=== PATIENT | male | born 1980 | race Two or more races ===

== ENCOUNTER 2024-02-13 20:12 | Inpatient (IN) | payer SELFPAY ==
[~2024-02-13] VITALS: Ht 182.9 cm; Wt 97.7 kg
--- NOTE | 2024-02-13 20:23 | ED.PDOC ---
History of Present Illness HPI Comments 43 y/o M, with a Hx of former tobacco abuse, presents with c/o 10/10 right-sided chest pain, with radiation to his back, for 1x day, today. Patient endorses on unprovoked onset of constant pain that worsened within the past 1-2 hours prior to arrival to ED. He describes pain as if he is "being stabbed with a knife" that worsens with deep breathes and exhalation and improves with pressure applied to chest area. Patient endorses FMHx of NE (grandfather and father) and CVA (brother) in addition to recent car travel within the past 24-48 hours. He denies any recent injuries, strenuous activities, sick contact, spoiled food intake, inhaling any chemicals, or illicit substance use/exposure. Patient does not follow up with the primary care provider however he states he is in relatively good health, exercises regularly. He takes finasteride for hair growth and Tylenol as needed. Time Seen by MD: 20:22 Reviewed Notes: Nurses Notes, Medications, Allergies Allergies: Coded Allergies: NO KNOWN ALLERGIES (Unverified , 02/13/24) Information Source: Patient Mode of Arrival: Ambulatory Severity: Moderate Timing: Days Duration: Since onset Prehospital treatment: None Review of Systems: REVIEW OF SYSTEMS: No fever, no chills, or fatigue HEENT: No sore throat, no earache, no congestion, no neck pain. Cardiac: Positive chest pain. No palpitations. Lungs: No shortness of breath, no cough. GI: Positive nausea, positive eructation, no vomiting, no diarrhea, no constipation, no abdominal pain : No dysuria, frequency, or urgency. No hematuria. Musculoskeletal: No joint pain , no joint swelling, no extremity edema. Skin: No rash, no itching. Neuro: Positive headache, positive dizziness, no weakness Vital Signs Vital Signs Date Time Temp Pulse Resp B/P (MAP) Pulse Ox O2 Delivery O2 Flow Rate FiO2 02/14/24 03:55 90 20 140/92 02/14/24 01:41 95 Room Air* 0 21 02/14/24 01:41 98.2 98.2 Physical Exam General: Awake, alert and oriented. No acute distress. Skin: Skin in warm, dry and intact. Appropriate color for ethnicity. Nailbeds pink with no cyanosis. No rash over the chest or abdomen wall. HEENT: The head is normocephalic and atraumatic. Conjunctivae are clear without exudates or hemorrhage. Sclera is non-icteric. EOM are intact. No signs of nystagmus. Eyelids are normal in appearance without swelling or lesions. Oral mucosa is pink and moist Neck: The neck is supple with normal range of motion. No JVD. Cardiac: Heart rate and rhythm are normal. No murmurs, gallops, or rubs are auscultated. Respiratory: No signs of respiratory distress. Lung sounds are clear in all lobes bilaterally without rales, ronchi, or wheezes. Chest: No deformity, positive right chest wall tenderness to palpation. Abdominal: Abdomen is soft, non-tender without distention. Bowel sounds are present and normoactive in all four quadrants. Extremities: Upper and lower extremities are atraumatic in appearance without deformity or edema. Neurological: The patient is awake, alert and oriented to person, place, and time with normal speech. Speech is clear. There is no facial asymmetry. Psychiatric: Appropriate mood and affect. Good judgement and insight. No visual or auditory hallucinations. Past Medical History PAST MEDICAL HISTORY: Denies Surgical History: Denies all surgeries Family History Family History: No family hx of Cancer, No family hx of DM, No family hx of HTN, No family hx ofKidney erik, No family hx of Liver erik, No family hx of Lung erik, No family hx of Stroke, Family hx of heart erik (NE) Family History (Other): CVA Social History Smoker: Cigarettes Alcohol: Denies ETOH Use Drugs: Denies Drug Use Lives In: Home Was a procedure done? Was a procedure done?: No EKG EKG : Comments Sinus rhythm at a rate of 99, no STEMI. QRS axis, QTC within normal limits. EKG EKG : Comments EKG 11:55 p.m. sinus rhythm at a rate of 99, no STEMI, QTC 402 QRS axis 100. EKG EKG : Comments 9:18p.m. rate 88, sinus rhythm, no STEMI, QRS 98, QTC 387 Differential Dx Considerations may include: NE, ACS, aortic dissection, PE, costochondritis, pericarditis, angina, gastritis, anxiety, pneumonia, musculoskeletal pain X-Ray, Labs, Meds, VS Vital Signs Date Time Temp Pulse Resp B/P (MAP) Pulse Ox O2 Delivery O2 Flow Rate FiO2 02/14/24 03:55 90 20 140/92 02/14/24 03:30 98 17 154/71 02/14/24 02:05 90 18 150/93 02/14/24 01:41 98 18 95 Room Air* 0 21 02/14/24 01:41 98.2 98 18 150/74 (99) 95 98.2 02/13/24 23:55 99 02/13/24 21:18 88 02/13/24 20:20 99 02/13/24 20:15 99.1 93 18 136/83 (100) 99 Lab Test 02/13/24 21:52 02/13/24 20:41 Range/Units Troponin I High Sensitivity < 3 L < 3 L </=54 ng/L White Blood Count 18.9 H 4.4-10.8 10^3/uL Red Blood Count 5.32 4.5-5.90 10^6/uL Hemoglobin 15.2 13.5-17.5 g/dL Hematocrit 44.7 41.0-53.0 % Mean Corpuscular Volume 84.1 80.0-100.0 fL Mean Corpuscular Hemoglobin 28.5 28.0-32.0 pg Mean Corpuscular Hemoglobin Concent 33.9 32.0-36.0 g/dL Red Cell Distribution Width 12.9 11.8-14.3 % Platelet Count 375 140-450 10^3/uL Mean Platelet Volume 6.7 L 6.9-10.8 fL Neutrophils (%) (Auto) 76.4 37.0-80.0 % Lymphocytes (%) (Auto) 12.0 10.0-50.0 % Monocytes (%) (Auto) 10.3 0.0-12.0 % Eosinophils (%) (Auto) 0.8 0.0-7.0 % Basophils (%) (Auto) 0.5 0.0-2.0 % Neutrophils # (Auto) 14.4 H 1.6-8.6 10 ^3/uL Lymphocytes # (Auto) 2.3 0.4-5.4 10 ^3/uL Monocytes # (Auto) 2.0 H 0-1.3 10 ^3/uL Eosinophils # (Auto) 0.2 0-0.8 10 ^3/uL Basophils # (Auto) 0.1 0-0.2 10 ^3/uL Nucleated Red Blood Cells 0.0 % Sodium Level 136 136-145 mmol/L Potassium Level 4.1 3.5-5.1 mmol/L Chloride Level 105 98-107 mmol/L Carbon Dioxide Level 25 20-31 mmol/L Anion Gap 6 5-15 Blood Urea Nitrogen 15 9-23 mg/dL Creatinine 0.99 0.700-1.30 mg/dL Glomerular Filtration Rate Calc 97 >90 mL/min BUN/Creatinine Ratio 15.2 10.0-20.0 Serum Glucose 104 74-106 mg/dL Calcium Level 9.8 8.7-10.4 mg/dL Total Bilirubin 0.5 0.2-1.0 mg/dL Aspartate Amino Transferase (AST) 17 13-40 U/L Alanine Aminotransferase (ALT) 49 H 7-40 U/L Alkaline Phosphatase 66 46-116 U/L Total Protein 7.7 5.7-8.2 g/dL Albumin 4.6 3.2-4.8 g/dL Current Medications Medications (Trade) Dose Ordered Sig/Adarsh Route Start Time Stop Time Status Last Admin Morphine Sulfate 4 mg ONCE ONCE IV 02/13/24 20:45 02/13/24 20:46 DC 02/14/24 02:05 Ondansetron HCl (Zofran) 4 mg ONCE ONCE IV 02/13/24 20:45 02/13/24 20:46 DC 02/14/24 02:05 Al Hydrox/Mg Hydrox/Simethicone (Maalox Plus) 30 ml ONCE ONCE PO 02/14/24 03:30 02/14/24 03:49 DC 02/14/24 03:55 Lidocaine HCl (Xylocaine 2% Viscous) 10 ml ONCE ONCE PO 02/14/24 03:30 02/14/24 03:49 DC 02/14/24 03:55 Morphine Sulfate 2 mg ONCE ONCE IV 02/14/24 03:30 02/14/24 03:49 DC 02/14/24 03:55 Ceftriaxone Sodium 50 ml @ 100 mls/hr ONCE ONCE IV 02/14/24 05:00 02/14/24 05:29 DC 02/14/24 05:17 Azithromycin 250 ml @ 125 mls/hr ONCE ONCE IV 02/14/24 05:00 02/14/24 07:17 DC 02/14/24 05:44 Ketorolac Tromethamine (Toradol Injection) 30 mg ONCE ONCE IV 02/14/24 05:00 02/14/24 05:07 DC 02/14/24 05:17 Time of 1ST Reevaluation: 20:50 Reevaluation 1ST: Unchanged Patient Education/Counseling: Diagnosis, Treatment Family Education/Counseling: No Family Present Departure 1 Departure Time of Disposition: 02:38 Impression: Primary Impression: Chest pain Additional Impression: Pneumonia Disposition: ADMITTED INPATIENT Condition: Stable Comments 43-year-old male who presents to the emergency department with right-sided chest pain. CT shows possible right-sided pneumonia versus pneumonitis. Antibiotics initiated in the emergency department. Patient is saturating well on room air. He continues to endorse significant right-sided chest pain. Patient admitted for further treatment, evaluation and monitoring. Extensive evaluation was performed in attempt to identify or rule out: (See differential diagnosis section) The following tests were ordered, and results were reviewed by me: (See diagnostic results section) The following test were independently interpreted by me: EKG I reviewed and agreed with the following test results read by other providers: Chest x-ray I reviewed the following notes from the pt's past medical encounters: (None available at this time) Additional information was gathered from interviewing the following independent historians: N/A Discussion of management or test interpretation with external physician/other qualified health healthcare recruiter: N/A Addressed an acute or chronic illness that poses a threat to life or bodily function: Pneumonia versus pneumonitis Decision regarding hospitalization or escalation of hospital level of care: Risk and benefits of admission for further treatment of patient's condition was considered. Due to patient's current clinical condition, high risk of decline and poor outcome if discharged and need for further inpatient management and monitoring, patient will be admitted to the hospital. Parenteral controlled substances: IV morphine Diagnosis or treatment significantly limited by social determinants of health: Patient has no primary care provider to follow up with Critical Care Note Critical Care Time?: No Stability Stability form required: No Heart Score Heart Score: Heart Score Response (Comments) Value History Slightly Suspicious 0 EKG Normal 0 Age <45 0 Risk Factors 1 or 2 risk factors 1 Troponin 1-2 x's Normal limit 1 Total 2 I personally scribed for ANGELES MOJICA MD ([email or web address]) on 02/13/24 at 21:19. Electronically submitted by Emmett Jimenez ([email or web address]). ANGELES MOJICA MD Feb 13, 2024 20:23
[2024-02-13 21:02] LABS: Basophils # (auto) 0.1 10 ^3/uL (0-0.2); Basophils % (auto) 0.5 % (0.0-2.0); Eosinophils # (auto) 0.2 10 ^3/uL (0-0.8); Eosinophils % (auto) 0.8 % (0.0-7.0); Hematocrit 44.7 % (41.0-53.0); Hemoglobin 15.2 g/dL (13.5-17.5); Lymphocytes # (auto) 2.3 10 ^3/uL (0.4-5.4); Mean Corpuscular Hemoglobin 28.5 pg (28.0-32.0); Mean Corpuscular Hgb Conc. 33.9 g/dL (32.0-36.0); Mean Corpuscular Volume 84.1 fL (80.0-100.0); Monocytes % (auto) 10.3 % (0.0-12.0); Neutrophils # (auto) 14.4 10 ^3/uL (1.6-8.6); Neutrophils % (auto) 76.4 % (37.0-80.0); Platelet Count (auto) 375 10^3/uL (140-450); Red Blood Cells 5.32 10^6/uL (4.5-5.90); Red Cell Distribution Width 12.9 % (11.8-14.3); White Blood Cell 18.9 10^3/uL (4.4-10.8)
[2024-02-13 21:24] LABS: Albumin 4.6 g/dL (3.2-4.8); Alkaline Phosphatase 66 U/L (46-116); Anion Gap 6 (5-15); Aspartate Aminotransferase 17 U/L (13-40); BUN/Creatinine Ratio 15.2 (10.0-20.0); Bilirubin, Total 0.5 mg/dL (0.2-1.0); Blood Urea Nitrogen 15 mg/dL (9-23); Calcium 9.8 mg/dL (8.7-10.4); Carbon Dioxide 25 mmol/L (20-31); Chloride 105 mmol/L (98-107); Glucose 104 mg/dL (74-106); Potassium 4.1 mmol/L (3.5-5.1); Sodium 136 mmol/L (136-145); Total Protein 7.7 g/dL (5.7-8.2)
[2024-02-13 21:36] LABS: Alanine Aminotransferase 49 U/L (7-40)
--- NOTE | 2024-02-14 00:51 | ECG ---
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
--- NOTE | 2024-02-14 00:52 | ECG ---
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
[2024-02-14 01:41] VITALS: PULSE 98; RESP 18; O2SAT 95
[2024-02-14] MEDS: ONDANSETRON HCL 4 MG/2 ML VIAL IV ONE (02:05)
[2024-02-14] MEDS: MORPHINE SULFATE 4 MG/ML SYR/VIAL IV ONE (02:05)
[2024-02-14] MEDS: IOHEXOL 350 MG/ML 100ML IJ ONE (03:01)
[2024-02-14] MEDS: LIDOCAINE VISCOUS 2% 15ML UD PO ONE (03:55)
[2024-02-14] MEDS: MAALOX PLUS or MAALOX 30 ML PO ONE (03:55)
[2024-02-14] MEDS: MORPHINE SULFATE INJ 2 MG/ml SYRG IV ONE (03:55)
--- NOTE | 2024-02-14 03:56 | DVH ---
Examination: CXRP Clinical Indication: CHEST PAIN Comparison: None. Technique: Frontal radiograph of the chest was obtained. Findings: Subtle radiodensity in the right lower lung laterally. Advised further evaluation with CT chest witho ut contrast. No pleural effusion on either side in current study. There is no pneumothorax. The cardiomediastinal silhouette is within normal limits. No acute osseous abnormality is seen. Impression: 1. Subtle radiodensity in the right lower lung laterally. Advised further evaluation with CT chest w ithout contrast. Electronically Signed 02/14/2024 03:56 Ely Cho
--- NOTE | 2024-02-14 04:28 | DVH ---
Examination: CTACH CLINICAL INDICATION: chest pain COMPARISON: None. CONTRAST USED: Intravenous TECHNIQUE: Technique for this CT scan was done using principles of ALARA (As Low As Reasonably Achie vable). Multiplanar reconstructions were obtained. CT pulmonary angiogram has been performed by obtaining 5 mm axial sections at 1 mm collimation after intravenous injection of non-ionic contrast. Retrospective 3D reconstruction in MIP and MPR format h as been performed. FINDINGS: The pulmonary trunk measures 28.5 mm. The right and left main pulmonary arteries are normal in origin, course and caliber. Both these vess els show good contrast opacification and measure approximately 18 mm in diameter each. The visualized descending and interlobar pulmonary arteries show normal contrast opacification. Ther e is no obvious intraluminal filling defect observed. Thoracic aorta is normal in size and well opacified with contrast. No overt dissection is seen. The trachea and the mainstem bronchi appear normal. No mediastinal lymph nodes seen. Patchy subpleural consolidation with areas of breakdown and necrosis within seen in the lateral segme nt of the right middle lobe. Air bronchograms seen within. Few surrounding ground-glass opacities a re noted. Small subpleural bulla in the right upper lobe. Minimal pleural effusion noted on right side, with underlying subsegmental atelectasis. Rest of both the lungs reveal no focal parenchymal abnormality and show normal aeration pattern. No evidence of pleural effusion is noted on left side. Cardiac size is normal. No evidence of pericardial effusion. Bony thorax is normal. Small sliding hiatus hernia. Mild hepatic steatosis. IMPRESSION: 1. No evidence of pulmonary thromboembolism. Thoracic aorta is normal in size. No dissection. 2. Patchy consolidation in the right middle lobe, most likely suggestive of infective pneumonitis. 3. Mild hepatic steatosis. 4. Small sliding hiatus hernia. Electronically Signed 02/14/2024 04:27 Ely Cho
--- NOTE | 2024-02-14 05:10 | DVH ---
Exam: CT CT AB PEL WO CON-NO ORAL OR IV History: epigastric abdominal pain Comparison Study: CT chest 02/22/24 TECHNIQUE: Noncontrast CT imaging of the abdomen pelvis was obtained the data set was subsequently re constructed into axial images. Images were reviewed on a work station using a combination of axial an d multiplanar using a variety of window levels and settings. All CT scans at this medical facility are performed using dose modulation techniques as appropriate t o a performed exam including the following: Automated exposure control was utilized; Adjustment of th e MA And/or KV according to patient size; And use of iterative reconstruction technique. Radiation dose Information: CT Dose: Dose-length product is 17 .3 mGy*cm FINDINGS: Image portions of the lung bases redemonstration mass like opacity in the right lower lung, as descri bed on prior examination. There is a small right pleural effusion. Small to moderate hiatal hernia. Limited noncontrast evaluation of the liver, gallbladder, spleen, pa ncreas and adrenal glands are unremarkable. Residual contrast is noted in the bilateral renal collect ing systems. There is no hydronephrosis. No evidence of bowel obstruction or focal bowel wall thickening. The appendix appears normal. No free fluid, free air comrade not the. The urinary bladder appears unremarkable. No suspicious osseous les ion. IMPRESSION: 1. Redemonstration pulmonary findings with mass like consolidation in the right lung and small right pleural effusion favoring infectious process, however short-term follow-up to exclude neoplastic proc ess is recommended. 2. Moderate hiatal hernia 3. No additional acute findings within the abdomen or pelvis.
[2024-02-14] MEDS ORDERED: MORPHINE SULFATE INJ 2 MG/ml SYRG IV PRN (05:15)
[2024-02-14] MEDS ORDERED: NITROGLYCERIN 0.4 MG SL TAB SL PRN (05:15)
[2024-02-14] MEDS: KETOROLAC TROMETH 30 MG/ML 1ML VIAL IV ONE ×2 (05:17→19:09)
[2024-02-14] MEDS: cefTRIAXone 1GM/50ML D5W 50 ML IV ONE (05:17)
[2024-02-14] MEDS ORDERED: cefTRIAXone 1GM/50ML D5W 50 ML IV ONE (05:30)
[2024-02-14] MEDS ORDERED: AZITHROMYCIN 500MG/ 250ML 250 ML IV ONE (05:30)
[2024-02-14] MEDS: AZITHROMYCIN 500MG/ 250ML 250 ML IV ONE (05:44)
[2024-02-14] MEDS: LACTATED RINGER'S 2,350 ML IV ONE (05:45)
[2024-02-14] MEDS: LACTATED RINGER'S 1,000 ML IV ONE (05:46)
--- NOTE | 2024-02-14 06:33 | DVHHPRES ---
History of Present Illness Resident Creating Document: GUERLINE PEÑALOZA RESIDENT History of Present Illness Mr. Garcia, a 43-year-old male former tobacco Smoker presents with severe right-sided chest stabbing pain radiating to his back which worsens with deep breaths and improves with pressure. The pain began unprovoked and has been constant for a day, intensifying in the past 1-2 hours. He has a family history of myocardial infarction and cerebrovascular accidents and recently traveled by car. He denies any recent injuries, strenuous activities, or other associated symptoms. He has no known allergies and arrived ambulatory. patient denies any fever, chills, sick contact, chest trauma, previous similar history, leg swelling, breathing difficulty or any other systemic symptoms. Past Medical History Former cigarette smoker. Past Surgical History Denies previous surgical history. Family History: CAD, Hyperlipidemia, Hypertension Family History No family hx of Cancer, No family hx of DM, No family hx of HTN, No family hx ofKidney erik, No family hx of Liver erik, No family hx of Lung erik, No family hx of Stroke, Family hx of heart erik ([place]) Smoke: Quit (Twenty pack-year) ALCOHOL: none Drugs: None Lives: with Family (At home) Domestic Violence: Neg Review of Systems Constitutional: No: Fever, Chills, Sweats, Weakness, Malaise, Other Eyes: No: Pain, Vision change, Conjunctivae inflammation, Eyelid inflammation, Other, Redness ENT: No: Ear pain, Ear discharge, Nose pain, Nose discharge, Nose congestion, Mouth pain, Mouth swelling, Throat pain, Throat swelling, Other Respiratory: No: Cough, Dry, Shortness of breath, SOB with excertion, Wheezing, Hemoptysis, Pleuritic Pain, Sputum, Wheezing, Other Cardiovascular: Chest Pain; No: Palpitations, Orthopnea, Paroxysmal Noc. Dyspnea, Edema, Lt Headedness, Other Gastrointestinal: No: Nausea, Vomiting, Abdominal Pain, Diarrhea, Constipation, Melena, Hematochezia, Other Genitourinary: No Dysuria, No Frequency, No Incontinence, No Hematuria, No Retention, No Other Musculoskeletal: No: other, neck pain, shoulder pain, arm pain, back pain, hand pain, leg pain, foot pain Skin: No: Rash, Lesions, Jaundice, Bruising, Other Neurological: No: Weakness, Numbness, Incoordination, Change in speech, Confusion, Seizures, Other Allergies: Coded Allergies: NO KNOWN ALLERGIES (Unverified , 02/13/24) Medications Current Medications Medications Dose Ordered Sig/Adarsh Route Start Time Stop Time Status Last Admin Dose Admin Nitroglycerin 0.4 mg Q5MINP PRN SL 02/14/24 05:15 Morphine Sulfate 2 mg Q30M PRN IV 02/14/24 05:15 Exam Vital Signs Vital Signs Date Time Temp Pulse Resp B/P (MAP) Pulse Ox O2 Delivery O2 Flow Rate FiO2 02/14/24 03:55 90 20 140/92 02/14/24 01:41 95 Room Air* 0 21 02/14/24 01:41 98.2 98.2 General Appearance: Alert, Oriented X3, Cooperative, No acute distress, mild distress, moderate distress, severe distress HEENT: Atraumatic, PERRLA, EOMI, Mucous membr. moist/pink Respiratory: Clear to auscultation, Normal air movement Cardiovascular: Regular rate, Normal S1, Normal S2, No murmurs, Other (reproducible chest pain) Abdominal: Normal bowel sounds (Hello), Soft, No tenderness, No hepatos penomegaly Extremities: No clubbing, No cyanosis, No edema, Normal pulses Skin: No rashes Neuro: Normal gait, Normal speech, Strength at 5/5 X4 ext, Normal tone, Sensation intact, Cranial nerves 3-12 NL, Reflexes 2+ Psych/Mental Status: Mental status NL, Mood NL Labs/Xrays Labs Test 02/14/24 05:45 02/13/24 21:52 02/13/24 20:41 Range/Units Troponin I High Sensitivity < 3 L </=54 ng/L White Blood Count 18.9 H 4.4-10.8 10^3/uL Red Blood Count 5.32 4.5-5.90 10^6/uL Hemoglobin 15.2 13.5-17.5 g/dL Hematocrit 44.7 41.0-53.0 % Mean Corpuscular Volume 84.1 80.0-100.0 fL Mean Corpuscular Hemoglobin 28.5 28.0-32.0 pg Mean Corpuscular Hemoglobin Concent 33.9 32.0-36.0 g/dL Red Cell Distribution Width 12.9 11.8-14.3 % Platelet Count 375 140-450 10^3/uL Mean Platelet Volume 6.7 L 6.9-10.8 fL Neutrophils (%) (Auto) 76.4 37.0-80.0 % Lymphocytes (%) (Auto) 12.0 10.0-50.0 % Monocytes (%) (Auto) 10.3 0.0-12.0 % Eosinophils (%) (Auto) 0.8 0.0-7.0 % Basophils (%) (Auto) 0.5 0.0-2.0 % Neutrophils # (Auto) 14.4 H 1.6-8.6 10 ^3/uL Lymphocytes # (Auto) 2.3 0.4-5.4 10 ^3/uL Monocytes # (Auto) 2.0 H 0-1.3 10 ^3/uL Eosinophils # (Auto) 0.2 0-0.8 10 ^3/uL Basophils # (Auto) 0.1 0-0.2 10 ^3/uL Nucleated Red Blood Cells 0.0 % Sodium Level 136 136-145 mmol/L Potassium Level 4.1 3.5-5.1 mmol/L Chloride Level 105 98-107 mmol/L Carbon Dioxide Level 25 20-31 mmol/L Anion Gap 6 5-15 Blood Urea Nitrogen 15 9-23 mg/dL Creatinine 0.99 0.700-1.30 mg/dL Glomerular Filtration Rate Calc 97 >90 mL/min BUN/Creatinine Ratio 15.2 10.0-20.0 Serum Glucose 104 74-106 mg/dL Calcium Level 9.8 8.7-10.4 mg/dL Total Bilirubin 0.5 0.2-1.0 mg/dL Aspartate Amino Transferase (AST) 17 13-40 U/L Alanine Aminotransferase (ALT) 49 H 7-40 U/L Alkaline Phosphatase 66 46-116 U/L Total Protein 7.7 5.7-8.2 g/dL Albumin 4.6 3.2-4.8 g/dL [address] [address] Ph: [phone] DIAGNOSTIC IMAGING Diagnostic Imaging Report : [id number] Signed PATIENT: NIGEL GARCIA ACCT: [id number] UNIT: [id number] : 1980 LOC: ER ROOM / BED: / AGE / SEX: 43 / M ADM STATUS: REG ER SERVICE 0329 ORDERING PHYSICIAN: ANGELES MOJICA MD PROCEDURE(s): ABPL - CT AB PEL WO CON-NO ORAL OR IV REASON: epigastric abdominal pain ORDER NUMBER(s): [id number], ACCESSION NUMBER(s): [id number] Exam: CT CT AB PEL WO CON-NO ORAL OR IV History: epigastric abdominal pain Comparison Study: CT chest 02/22/24 TECHNIQUE: Noncontrast CT imaging of the abdomen pelvis was obtained the data set was subsequently reconstructed into axial images. Images were reviewed on a work station using a combination of axial and multiplanar using a variety of window levels and settings. All CT scans at this medical facility are performed using dose modulation techniques as appropriate to a performed exam including the following: Automated exposure control was utilized; Adjustment of the MA And/or KV according to pa tient size; And use of iterative reconstruction technique. Radiation dose Information: CT Dose: Dose-length product is 03/05/17 .3 mGy*cm FINDINGS: Image portions of the lung bases redemonstration mass like opacity in the right lower lung, as described on prior examination. There is a small right pleural effusion. Small to moderate hiatal hernia. Limited noncontrast evaluation of the liver, gallbladder, spleen, pancreas and adrenal glands are unremarkable. Residual contrast is noted in the bilateral renal collecting systems. There is no hydronephrosis. No evidence of bowel obstruction or focal bowel wall thickening. The appendix appears normal. No free fluid, free air comrade not the. The urinary bladder appears unremarkable. No suspicious osseous lesion. IMPRESSION: 1. Redemonstration pulmonary findings with mass like consolidation in the right lung and small right pleural effusion favoring infectious process, however short-term follow-up to exclude neoplastic process is recommended. 2. Moderate hiatal hernia 3. No additional acute findings within the abdomen or pelvis. ATED BY: JULY BURGOS MD DICTATED DATE/TIME: 02/14/24507 SIGNED BY: JULY BURGOS MD SIGNED DATE/TIME: 02/14/24507 CC: [place] [id number] Ph: [phone] DIAGNOSTIC IMAGING Diagnostic Imaging Report : [id number] Signed PATIENT: NIGEL GARCIA ACCT: [id number] UNIT: [id number] : 1980 LOC: ER ROOM / BED: / AGE / SEX: 43 / M ADM STATUS: REG ER SERVICE 0238 ORDERING PHYSICIAN: ANGELES MOJICA MD PROCEDURE(s): CTACH - CT ANGIO CHEST CONTRAST REASON: chest pain ORDER NUMBER(s): [id number], ACCESSION NUMBER(s): [id number] Examination: CTACH CLINICAL INDICATION: chest pain COMPARISON: None. CONTRAST USED: Intravenous TECHNIQUE: Technique for this CT scan was done using principles of ALARA (As Low As Reasonably Achievable). Multiplanar reconstructions were obtained. CT pulmonary angiogram has been performed by obtaining 5 mm axial sections at 1 mm collimation after intravenous injection of non-ionic contrast. Retrospective 3D reconstruction in MIP and MPR format has been performed. FINDINGS: The pulmonary trunk measures 28.5 mm. The right and left main pulmonary arteries are normal in origin, course and caliber. Both these vessels show good contrast opacification and measure approximately 18 mm in diameter each. The visualized descending and interlobar pulmonary arteries show normal contrast opacification. There is no obvious intraluminal filling defect observed. Thoracic aorta is normal in size and well opacified with contrast. No overt dissection is seen. The trachea and the mainstem bronchi appear normal. No mediastinal lymph nodes seen. Patchy subpleural consolidation with areas of breakdown and necrosis within seen in the lateral segment of the right middle lobe. Air bronchograms seen within. Few surrounding ground-glass opacities are noted. Small subpleural bulla in the right upper lobe. Minimal pleural effusion noted on right side, with underlying subsegmental atelectasis. Rest of both the lungs reveal no focal parenchymal abnormality and show normal aeration pattern. No evidence of pleural effusion is noted on left side. Cardiac size is normal. No evidence of pericardial effusion. Bony thorax is normal. Small sliding hiatus hernia. Mild hepatic steatosis. IMPRESSION: 1. No evidence of pulmonary thromboembolism. Thoracic aorta is normal in size. No dissection. 2. Patchy consolidation in the right middle lobe, most likely suggestive of infective pneumonitis. 3. Mild hepatic steatosis. 4. Small sliding hiatus hernia. Electronically Signed 02/14/2024 04:27 Ely Cho ATED BY: MARQUIS ARRIAGA MD DICTATED DATE/TIME: 02/14/24426 SIGNED BY: MARQUIS ARRIAGA MD SIGNED DATE/TIME: 02/14/24426 CC: [place] [id number] Ph: [phone] DIAGNOSTIC IMAGING Diagnostic Imaging Report : [id number] Signed PATIENT: NIGEL GARCIA ACCT: [id number] UNIT: [id number] : 1980 LOC: ER ROOM / BED: / AGE / SEX: 43 / M ADM STATUS: REG ER SERVICE 7 ORDERING PHYSICIAN: ANGELES MOJICA MD PROCEDURE(s): CXRP - CHEST PORTABLE REASON: CHEST PAIN ORDER NUMBER(s): [id number], ACCESSION NUMBER(s): [id number] Examination: CXRP Clinical Indication: CHEST PAIN Comparison: None. Technique: Frontal radiograph of the chest was obtained. Findings: Subtle radiodensity in the right lower lung laterally. Advised further evaluation with CT chest without contrast. No pleural effusion on either side in current study. There is no pneumothorax. The cardiomediastinal silhouette is within normal limits. No acute osseous abnormality is seen. Impression: 1. Subtle radiodensity in the right lower lung laterally. Advised further evaluation with CT chest without contrast. Electronically Signed 02/14/2024 03:56 Ely Cho ATED BY: MARQUIS ARRIAGA MD DICTATED DATE/TIME: 02/14/24355 SIGNED BY: MARQUIS ARRIAGA MD SIGNED DATE/TIME: 02/14/24355 CC: EKG Name: NIGEL HARRIS Acct: [id number] [place] [address] ELECTROCARDIOGRAM REPORT PATIENT: NIGEL HARRIS ACCT: [id number] : 1980 LOC: ER ROOM / BED: / AGE / SEX: 43 / M ADM STATUS: REG ER SERVICE 29 UNIT: [id number] ORDERING PHYSICIAN: ANGELES MOJICA MD PROCEDURE(s): EKG - ELECTROCARDIGRAM ORDER NUMBER(s): [id number], ACCESSION NUMBER(s): [id number] [facility] Test Date: 2024-02-13 Test Time: 21:18:45 Pat Name: NIGEL HARRIS Department: ER Room: Gender: [employer] 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 DICTATED BY: DICTATED DATE/TIME:02/13/242117 ELECTRONICALLY SIGNED BY: ELECTRONICALLY CO-SIGNED BY: Assessment/Plan Assessment/Plan Assessment: Mr. Garcia, a 43-year-old former smoker, presents with severe, unp rovoked right-sided chest pain radiating to his back, worsened by deep breaths and improved with pressure, with a family history of heart and cerebrovascular diseases. Plan: #1 Community-acquired pneumonia Gram-positive/Gram-negative: unusual site of possible CAP, sputum culture, blood culture to continue COVID, influenza, RSV to test to rule out. IV azithromycin ceftriaxone to continue for now. #2 Sepsis secondary to above: SIRS response with tachycardia heart rate above 90, WBC 18.9, source of infection likely sepsis, IV fluid, IV antibiotic to continue. Lactate negative reassuring. rule out other sources of infection. CT abdomen pelvis unremarkable. pending UA. #3 Possible right lung mass: Further workup needed. CT abdomen pelvis unremarkable Although it was noncontrast CT scan. #4 Acute chest pain ACS to rule out : Broad differentials likely pleurisy/ pericarditis, ESR CRP to follow. musculoskeletal could be CAP associated. #5 STEMI/ NSTEMI unlikely: with negative troponin, no acute ST-T EKG changes, possible anterior infarct nonacute, BNP 5.51, UDS, alcohol pending, TSH WNL. Pending Further workup . #6 PE unlikely: with CT angiography, patient is hemodynamically stable, no electrical signs of right heart strain. D-dimer pending. Bilateral leg no signs of DVT. #7 overweight: BMI 29.2, lifestyle modification and Weight loss could be beneficial overall. #8 possible underlying CAD: Questionable coronary artery disease of nisreen turity, lipid panel, HbA1c to check, keep the patient on so far aspirin 81 and atorvastatin 40 mg daily presumptively. Discontinue if ASCVD score low. inpatient versus outpatient stress test If recurrent chest pain continues. #9 Uncontrolled essential hypertension: Not known to the patient previously. Blood pressure elevated in 150s for systolic. Target blood pressure 140/90, as per recent studies even 120/80 or below could be a great choice. Started the patient was 5 amlodipine monitor blood pressure , cardiac diet to continue with salt restriction. As needed hydralazine. #10 Moderate hiatal hernia: Nonspecific signs of GERD continue PPI. PUD prophylaxis: protonix 40mg IV daily. DVT prophylaxis: Levonox 40mg /Brisk movement. Barriers to discharge: Medical diagnosis and management in progress. Patient lives At home. Independent for ADL. PCP: no established PCP. Case discussed with Dr. Hagan. Code Status: Full Code. Care discussion needed total 29 minutes bedside. Plan discussed with: Patient, Other (Primary team, RN.) My Orders Orders - GUERLINE PEÑALOZA RESIDENT Procedure Category Date Status Time Admit ADMIT 02/14/24 Transmitted 05:14 Nitroglycerin PHA 02/14/24 In Process Sublingual (Ntrostat 05:15 Morphine Sulfate PHA 02/14/24 In Process Injection 05:15 Oxygen By Nasal RT 02/14/24 Transmitted Cannula 05:14 Stat Ekg For Chest [facility] 02/14/24 In Process Pain 05:14 Notify Md Of Changes [facility] 02/14/24 In Process From Base 05:14 Manager Fund For [facility] 02/14/24 In Process 24 Hours 05:14 Emergency Dysrhythmia [facility] 02/14/24 In Process Protocol 05:14 Rhythm Strips Once [facility] 02/14/24 In Process Every Shift 05:14 B-Type Natriuretic LAB 02/14/24 In Process Peptide 05:16 Thyroid Stimulating LAB 02/14/24 In Process Hormone 05:16 Blood Alcohol LAB 02/14/24 In Process 05:16 Respiratory Culture [facility] 02/14/24 Logged W/ Gs 05:16 Blood Culture [facility] 02/14/24 In Process 05:16 Erythrocyte LAB 02/14/24 In Process Sedimentation Rate 05:16 C-Reactive Protein LAB 02/14/24 In Process 05:16 Mrsa Screen [facility] 02/14/24 Logged 05:16 Lactic Acid W/ Reflex LAB 02/14/24 In Process Order 05:16 Lactated Ringer's PHA 02/14/24 In Process 05:30 Lactated Ringer's PHA 02/14/24 In Process 05:30 Date of Service: Feb 14, 2024 Billing Provider: DAVID HAGAN MD Common Visit Codes: [id number] INP/OBS CARE (HIGH) GUERLINE PEÑALOZA RESIDENT Feb 14, 2024 06:33
[2024-02-14 06:40] LABS: Blood Alcohol < 3.0 mg/dL (<10)
[2024-02-14] MEDS ORDERED: hydrALAZINE HCL 20 MG/ML VL IV PRN (06:45)
[2024-02-14] MEDS: amLODIPine BESYLATE 5 MG TAB PO ONE (07:23)
[2024-02-14 07:25] LABS: CRP High Sensitivity 6.65 mg/dL (<1.0)
[2024-02-14 07:43] LABS: Triglycerides 77 mg/dL (< 150)
[2024-02-14 07:44] LABS: LDL Cholesterol 95 mg/dL (< 100)
[2024-02-14 07:45] LABS: Cholesterol 164 mg/dL (< 200); HDL Cholesterol 52 mg/dL (40-59)
[2024-02-14 08:13] LABS: Erythrocyte Sedimentation Rate 37 mm/hr (0-20)
[2024-02-14] MEDS: ENOXAPARIN SOD 40 MG/0.4 ML SYRINGE SC SCH (09:30)
[2024-02-14] MEDS: ASPirin 81 mg TAB PO SCH (09:30)
[2024-02-14] MEDS: cefTRIAXone 1GM/50ML D5W 50 ML IV SCH (09:30)
[2024-02-14] MEDS ORDERED: ACETAMINOPHEN 325 MG TAB PO PRN ×2 (10:30→15:45)
[2024-02-14 10:46] LABS: Basophils # (auto) 0.1 10 ^3/uL (0-0.2); Basophils % (auto) 0.2 % (0.0-2.0); Eosinophils # (auto) 0 10 ^3/uL (0-0.8); Eosinophils % (auto) 0.1 % (0.0-7.0); Hematocrit 42.7 % (41.0-53.0); Hemoglobin 14.4 g/dL (13.5-17.5); Lymphocytes # (auto) 1.7 10 ^3/uL (0.4-5.4); Lymphocytes % (auto) 7.4 % (10.0-50.0); Mean Corpuscular Hemoglobin 28.8 pg (28.0-32.0); Mean Corpuscular Hgb Conc. 33.7 g/dL (32.0-36.0); Mean Corpuscular Volume 85.4 fL (80.0-100.0); Monocytes % (auto) 8.7 % (0.0-12.0); Neutrophils # (auto) 19.1 10 ^3/uL (1.6-8.6); Neutrophils % (auto) 83.6 % (37.0-80.0); Nucleated Red Blood Cells % 0.1 %; Platelet Count (auto) 354 10^3/uL (140-450); White Blood Cell 22.9 10^3/uL (4.4-10.8)
[2024-02-14 10:58] LABS: INR 1.1 (0.9-1.15); Partial Thromboplastin Time 33.1 SEC (24.5-34.5); Prothrombin Time 11.6 sec (9.3-11.8)
[2024-02-14 11:12] LABS: Alanine Aminotransferase 39 U/L (7-40); Albumin 4.4 g/dL (3.2-4.8); Alkaline Phosphatase 62 U/L (46-116); Anion Gap 6 (5-15); Aspartate Aminotransferase 13 U/L (13-40); BUN/Creatinine Ratio 10.6 (10.0-20.0); Blood Urea Nitrogen 10 mg/dL (9-23); Calcium 9.6 mg/dL (8.7-10.4); Carbon Dioxide 27 mmol/L (20-31); Chloride 101 mmol/L (98-107)
[2024-02-14 11:13] LABS: Bilirubin, Total 0.7 mg/dL (0.2-1.0); Total Protein 7.4 g/dL (5.7-8.2)
[2024-02-14 11:16] LABS: Glucose 111 mg/dL (74-106); Sodium 134 mmol/L (136-145)
[2024-02-14] MEDS: AZITHROMYCIN 500MG/ 250ML 250 ML IV SCH (12:17)
[2024-02-14] MEDS ORDERED: IBUPROFEN 600 MG TAB PO PRN (12:30)
--- NOTE | 2024-02-14 12:33 | DVHPNRES ---
Progress Note Date Seen: Feb 14, 2024 Resident Creating Document: TOM MARQUEZ RESIDENT Medical Necessity Reason Pt with a Central, PICC or Fol: No Subjective Review of Systems NIGEL STEVENS Is a 43-year-old male with a PMH of migraine presented to the ED with the chief complaints of sharp right-sided chest pain since on the day of admission. Patient reported the pain began sudden onset, 8/10 intensity, radiating to pack, coughing and taking deep breathing and sitting agree with the pain but no relieving factors. Patient reported he has been having cough for a while and chills yesterday. On my assessment patient denies recent travel, injury, fever, nausea, vomiting, diarrhea, sick contacts, and other acute symptoms. PMH: Migraine Social history: Denies Family history: CAD, hyperlipidemia, hypertension Social history: Lives with the family. Twenty pack years smoking history ( half pack per day since 19 years old ) but denies alcohol and other drug abuse Allergies: No known allergies Home medications: None Patient seen and examined at the bedside. Patient reported still pain in the left chest, given Toradol [address] dose [address]fen. CT abdominal pelvis showed findings suggestive of consolidation with a small right pleural effusion likely pneumonia .CXR & CT angiography showed findings suggestive of pneumoniaright middle lobe. Currently receiving azithromycin and Rocephin. Ordered blood culture and respiratory cultures. Objective vital signs Vital Sign Date Time Temp Pulse Resp B/P (MAP) Pulse Ox O2 Delivery O2 Flow Rate FiO2 02/14/24 07:26 98 17 154/71 02/14/24 06:54 98.1 97 98.1 02/14/24 01:41 Room Air* 0 21 Total Intake and Output 02/13/24 02/13/24 02/14/24 15:00 23:00 07:00 Intake Total 1175 ml Balance 1175 ml medications Current Medications Medications Dose Ordered Sig/Adarsh Route Start Time Stop Time Status Last Admin Dose Admin Nitroglycerin 0.4 mg Q5MINP PRN SL 02/14/24 05:15 Morphine Sulfate 2 mg Q30M PRN IV 02/14/24 05:15 Amlodipine Besylate 5 mg DAILY PO 02/15/24 10:00 Hydralazine HCl 10 mg Q6HP PRN IV 02/14/24 06:45 Lactated Ringer's 1,000 ml @ 100 mls/hr Q10H IV 02/14/24 07:00 Enoxaparin Sodium 40 mg DAILY SC 02/14/24 10:00 Aspirin 81 mg DAILY PO 02/14/24 10:00 02/14/24 09:30 81 MG Atorvastatin Calcium 40 mg HS PO 02/14/24 22:00 Ceftriaxone Sodium 50 ml @ 100 mls/hr DAILY@09 IV 02/14/24 09:00 02/14/24 09:30 100 MLS/HR Azithromycin 250 ml @ 125 mls/hr DAILY IV 02/14/24 10:00 02/14/24 12:17 125 MLS/HR Acetaminophen 650 mg Q4HP PRN PO 02/14/24 10:30 Ibuprofen 600 mg Q8HP PRN PO 02/14/24 12:30 UNV Examination Pt is lying on bed General Appearance: Alert, Oriented X3, Cooperative,moderate distress HEENT: Atraumatic, Mucous membranes moist/pink Respiratory: severe reproducible right chest tenderness. Clear to auscultation, Normal air movement, No added sounds Cardiovascular: Regular rate, Normal S1, Normal S2, No murmurs Abdominal: Active bowel sounds, Soft, no distention, no tenderness Extremities: No edema, Normal pulses, No tenderness/swelling Skin: No Significant rash, except past surgical scars Neuro: Normal speech, sensorimotor deficits none Psych/Mental Status: Mental status NL, Mood NL Nurse was there as sharperone during examination laboratory and microbiology Laboratory Tests 02/14/24 10:27 Test 02/14/24 10:27 Range/Units Serum Glucose 111 H 74-106 mg/dL Labs and/or images reviewed: Labs reviewed by me, Image(s) reviewed by me Problem List/Assessment/Plan Problem List/Assessment/Plan # chest pain ruled out ACS and PE # chest pain likely due to pleuritic or musculoskeletal - reviewed 12 lead EKG and troponins were negative - pain management with Toradol and ibuprofen - CT findings suggestive of pneumonia #? sepsis likely due to pneumonia # Acute Gram-positive are negative bacterial pneumonia - evident on CXR and CT which showed right middle lobe consolidations - ordered blood and respiratory cultures - currently on azithromycin and Rocephin - supportive treatment - monitor lab # ? right lung mass - evident on CT - outpatient follow up # elevated blood pressure likely due to pain - monitor for now # Moderate hiatal hernia - evident on CT - Nonspecific signs of GERD continue PPI. Melissanox for now Protonix Cardiac diet Reconciled home meds Goals of care discussed with the patient for more than 27 minutes: Full code status Case management discussed with Dr. Jose, patient and nurse Plan discussed with: Patient My Orders My Orders Orders - TOM MARQUEZ RESIDENT Procedure Category Date Status Time Acetaminophen Tablet PHA 02/14/24 In Process (Tylenol Tablet) 10:30 Ketorolac Injection PHA 02/14/24 Logged (Toradol Injection) 12:30 Ibuprofen Tablet PHA 02/14/24 Logged (Motrin Tablet) 12:30 TOM MARQUEZ RESIDENT Feb 14, 2024 12:33
[2024-02-14 12:59] VITALS: BP 128/85; PULSE 110; RESP 20; TEMP 100.4; O2SAT 95
[2024-02-14] MEDS: ACETAMINOPHEN 325 MG TAB PO ONE (17:15)
[2024-02-14] MEDS: LACTATED RINGER'S 1,000 ML IV SCH (17:30)
[2024-02-14 18:06] VITALS: BP 135/80; PULSE 110; RESP 18; TEMP 98.6; O2SAT 89
[2024-02-14 19:22] VITALS: TEMP 98.6
[2024-02-14 19:50] VITALS: O2SAT 98
[2024-02-14 20:00] VITALS: PULSE 101
[2024-02-14 20:29] LABS: Urine Bacteria None Seen /hpf (None Seen)
[2024-02-14 20:34] LABS: Urine Blood Negative /uL (Negative); Urine Clarity Clear (Clear); Urine Color Colorless (Yellow); Urine Protein, UAD Negative (Negative); Urine Specific Gravity 1.004 (1.001-1.035); Urine Urobilinogen Normal (Negative); Urine WBC <1 /hpf (0 - 3)
[2024-02-14 20:47] LABS: Amphetamine Screen, Urine Neg (NEGATIVE); Barbiturate Scree,Urine Neg (NEGATIVE); Benzodiazephine Screen, Urine Neg (NEGATIVE)
[2024-02-14 20:48] LABS: Cannabinoid Screen, Urine Neg (NEGATIVE); Cocaine Screen, Urine Neg (NEGATIVE); Opiate Scree,Urine Neg (NEGATIVE); Phencyclidine Screen, Urine Neg (NEGATIVE)
[2024-02-14] MEDS ORDERED: ATORVASTATIN 20 MG TAB PO SCH (22:00)
--- NOTE | 2024-02-15 07:40 | DVHDSRES ---
Discharge Summary Date of Admission Resident Creating Document: TOM MARQUEZ RESIDENT Feb 14, 2024 at 05:15 Date of Discharge: Feb 14, 2024 Admitting Diagnosis sepsis likely due to pneumonia Labs/Diagnostic Data: Laboratory Results Test 02/14/24 14:40 02/14/24 10:27 02/14/24 05:45 02/13/24 21:52 Urine Color Colorless (Yellow) Urine Clarity Clear (Clear) Urine pH 6.0 (5.0-9.0) Urine Specific Krebs 1.004 (1.001-1.035) Urine Protein Negative (Negative) Urine Ketones Negative (Negative) Urine Blood Negative /uL (Negative) Urine Nitrite Negative (Negative) Urine Bilirubin Negative (Negative) Urine Urobilinogen Normal mg/dL (Negative) Urine Leukocyte Esterase Negative /uL (Negative) Urine RBC <1 /hpf (0 - 3) Urine WBC <1 /hpf (0 - 3) Urine Squamous Epithelial Cells None seen /hpf (<5) Urine Bacteria None seen /hpf (None Seen) Urine Glucose Normal mg/dL (Normal) Urine Opiates Screen Neg (NEGATIVE) Urine Fentanyl Screen Neg (NEGATIVE) Urine Barbiturates Screen Neg (NEGATIVE) Urine Phencyclidine Screen Neg (NEGATIVE) Urine Amphetamines Screen Neg (NEGATIVE) Urine Benzodiazepines Screen Neg (NEGATIVE) Urine Cocaine Screen Neg (NEGATIVE) Urine Cannabinoids Screen Neg (NEGATIVE) White Blood Count 22.9 10^3/uL (4.4-10.8) Red Blood Count 5.00 10^6/uL (4.5-5.90) Hemoglobin 14.4 g/dL (13.5-17.5) Hematocrit 42.7 % (41.0-53.0) Mean Corpuscular Volume 85.4 fL (80.0-100.0) Mean Corpuscular Hemoglobin 28.8 pg (28.0-32.0) Mean Corpuscular Hemoglobin Concent 33.7 g/dL (32.0-36.0) Red Cell Distribution Width 13.0 % (11.8-14.3) Platelet Count 354 10^3/uL (140-450) Mean Platelet Volume 6.4 fL (6.9-10.8) Neutrophils (%) (Auto) 83.6 % (37.0-80.0) Lymphocytes (%) (Auto) 7.4 % (10.0-50.0) Monocytes (%) (Auto) 8.7 % (0.0-12.0) Eosinophils (%) (Auto) 0.1 % (0.0-7.0) Basophils (%) (Auto) 0.2 % (0.0-2.0) Neutrophils # (Auto) 19.1 10 ^3/uL (1.6-8.6) Lymphocytes # (Auto) 1.7 10 ^3/uL (0.4-5.4) Monocytes # (Auto) 2.0 10 ^3/uL (0-1.3) Eosinophils # (Auto) 0 10 ^3/uL (0-0.8) Basophils # (Auto) 0.1 10 ^3/uL (0-0.2) Nucleated Red Blood Cells 0.1 % Prothrombin Time 11.6 sec (9.3-11.8) Prothrombin Time INR 1.10 (0.9-1.15) Activated Partial Thromboplast Time 33.1 SEC (24.5-34.5) Sodium Level 134 mmol/L (136-145) Potassium Level 4.0 mmol/L (3.5-5.1) Chloride Level 101 mmol/L (98-107) Carbon Dioxide Level 27 mmol/L (20-31) Anion Gap 6 (5-15) Blood Urea Nitrogen 10 mg/dL (9-23) Creatinine 0.94 mg/dL (0.700-1.30) Glomerular Filtration Rate Calc 103 mL/min (>90) BUN/Creatinine Ratio 10.6 (10.0-20.0) Serum Glucose 111 mg/dL (74-106) Calcium Level 9.6 mg/dL (8.7-10.4) Total Bilirubin 0.7 mg/dL (0.2-1.0) Aspartate Amino Transferase (AST) 13 U/L (13-40) Alanine Aminotransferase (ALT) 39 U/L (7-40) Alkaline Phosphatase 62 U/L (46-116) Total Protein 7.4 g/dL (5.7-8.2) Albumin 4.4 g/dL (3.2-4.8) Erythrocyte Sedimentation Rate 37 mm/hr (0-20) Hemoglobin A1c 5.6 % A1C (<5.7) Lactic Acid Level 0.8 mmol/L (0.4-2.0) C-Reactive Protein High Sensitivity 6.65 mg/dL (<1.0) B-Type Natriuretic Peptide 5.51 pg/mL (0-100) Triglycerides Level 77 mg/dL (< 150) Cholesterol Level 164 mg/dL (< 200) LDL Cholesterol 95 mg/dL (< 100) HDL Cholesterol 52 mg/dL (40-59) Thyroid Stimulating Hormone (TSH) 0.88 uIU/mL (0.55-4.78) Plasma/Serum Blood Alcohol < 3.0 mg/dL (<10) Troponin I High Sensitivity < 3 ng/L (</=54) Other Laboratory Tests 02/14/24 10:27 Brief Hx & Hospital Course: NIGEL STEVENS Is a 43-year-old male with a PMH of migraine presented to the ED with the chief complaints of sharp right-sided chest pain since on the day of admission. Patient reported the pain began sudden onset, 8/10 intensity, radiating to pack, coughing and taking deep breathing and sitting agree with the pain but no relieving factors. Patient reported he has been having cough for a while and chills yesterday. On my assessment patient denies recent travel, injury, fever, nausea, vomiting, diarrhea, sick contacts, and other acute symptoms. patient diagnosed as sepsis due to pneumonia which required hospital admission for further evaluation and manage. Due to chest pain ordered troponins x3 and EKG which were negative, pain is mostly pleuritic or musculoskeletal as it is very tender to touch, Toradol and ibuprofen. CT abdominal pelvis showed findings suggestive of consolidation with a small right pleural effusion likely pneumonia .CXR & CT angiography showed findings suggestive of pneumoniaright middle lobe. Patient was receiving azithromycin and Rocephin along with IVF. Ordered smith cultures which are pending. as patient is still under the treatment, do not want to stay in the hospital , patient eloped. Operations or Procedures Examination: CXRP Impression: 1. Subtle radiodensity in the right lower lung laterally. Advised further evaluation with CT chest without contrast. CT CHEST ANGIOGRAM IMPRESSION: 1. No evidence of pulmonary thromboembolism. Thoracic aorta is normal in size. No dissection. 2. Patchy consolidation in the right middle lobe, most likely suggestive of infective pneumonitis. 3. Mild hepatic steatosis. 4. Small sliding hiatus hernia. CT CT AB PEL WO CON-NO ORAL OR IV IMPRESSION: 1. Redemonstration pulmonary findings with mass like consolidation in the right lung and small right pleural effusion favoring infectious process, however short-term follow-up to exclude neoplastic process is recommended. 2. Moderate hiatal hernia 3. No additional acute findings within the abdomen or pelvis. Condition at Discharge: Undetermined Final Diagnosis/Problems List # chest pain ruled out ACS and PE # chest pain likely due to pleuritic or musculoskeletal #? sepsis likely due to pneumonia # Acute Gram-positive are negative bacterial pneumonia # ? right lung mass # elevated blood pressure likely due to pain # Moderate hiatal hernia Discharge Disposition: Eloped Discharge Statement: "Patient was advised to return to the ER or call 911 if any headaches, dizziness, shortness of breath, chest pain, abdominal pain, bleeding, fevers, or worsening of medical condition. Patient was counseled about treatment plan, medications, possible side effects, patientverbalized understanding. All questions were answered to the best of my ability. This discharge took greater then 30 minutes in planning, reviewing documentation, counseling the patient, and discussing with other team members." ASSESSMENT ASSESSMENT Assessment TOM MARQUEZ RESIDENT Feb 15, 2024 07:40
[2024-02-15] MEDS ORDERED: amLODIPine BESYLATE 5 MG TAB PO SCH (10:00)
== END 2024-02-14 21:46 | disposition left against medical advice (07) | DRG 871 ==
LOC: ER 20:12 → TELE 02-14 05:15
PROVIDERS: ADMIT Internal Medicine Geriatric Medicine; ATTEND Internal Medicine Geriatric Medicine
DX: A41.50 Gram-negative sepsis, unspecified (principal); J15.69 Pneumonia due to other Gram-negative bacteria; J15.9 Unspecified bacterial pneumonia; R91.8 Other nonspecific abnormal finding of lung field; E66.3 Overweight; I10 Essential (primary) hypertension; K44.9 Diaphragmatic hernia without obstruction or gangrene; Z82.3 Family history of stroke; Z82.49 Family history of ischemic heart disease and other diseases of the circulatory system; Z87.891 Personal history of nicotine dependence; Z68.29 Body mass index [BMI] 29.0-29.9, adult
CPT/HCPCS: 36415; 71045; 71275; 74176; 80053; 80061; 80307; 80320; 81001; 83036; 83605; 83880; 84443; 84484; 85025; 85610; 85652; 85730; 86141; 87040; 93005; G0378; J1885; J2405